=== PATIENT | female | born 2000 | race Caucasian/White ===

== ENCOUNTER 2022-08-31 05:55 | Inpatient (IN) | payer OTHER ==
[~2022-08-31] VITALS: Ht 170.2 cm; Wt 59.1 kg
[2022-08-31 09:33] LABS: HEPATITIS B SURFACE ANTIBODY POSITIVE (POSITIVE)
[2022-08-31 09:44] LABS: HEPATITIS B SURFACE ANTIGEN NEGATIVE (NEGATIVE)
[2022-08-31 09:57] LABS: HIV 1&2 SCREEN NEGATIVE (NEGATIVE)
[2022-08-31 10:05] LABS: HEPATITIS C VIRUS ABY INDEX 0.1 INDEX (<0.8)
[2022-08-31 10:29] LABS: GC DNA AMPLIFICATION NEGATIVE (NEGATIVE)
[2022-08-31] MEDS ORDERED: OLANZapine ORAL DISINTEGRATING TAB 5MG PO PRN (13:35)
[2022-08-31] MEDS ORDERED: NICOTINE 21MG/24HR 1 EA TRANSDERMAL TD PRN (13:35)
[2022-08-31] MEDS ORDERED: MOM 30ML SUSPENSION UDC PO PRN (13:35)
[2022-08-31] MEDS ORDERED: ACETAMINOPHEN TAB 650MG DOSE (2X325MG) PO PRN (13:35)
[2022-08-31] MEDS ORDERED: MAALOX 30 ML SUSP *UDC PO PRN (13:35)
[2022-08-31] MEDS ORDERED: IBUPROFEN 400MG TAB PO PRN (13:35)
[2022-08-31] MEDS ORDERED: traZODone 50 MG TAB PO PRN (13:35)
[2022-08-31] MEDS ORDERED: FLUO20CA22 PO (15:05)
[2022-08-31] MEDS ORDERED: VIST25CA PO (15:05)
[2022-08-31] MEDS ORDERED: SPIR100T3 PO (15:05)
[2022-08-31] MEDS ORDERED: CETI-154 PO (15:05)
[2022-08-31] MEDS ORDERED: HOME MED LIST COMPLETE! XX SCH (15:10)
[2022-08-31 17:10] VITALS: BP 132/74; TEMP 97.1; O2SAT 100
[2022-08-31] MEDS: diphenhydrAMINE 25MG CAP PO PRN (22:13)
[2022-09-01 06:00] VITALS: BP 119/77; TEMP 98.4; O2SAT 100
[2022-09-01] MEDS: FLUoxetine 20MG CAP PO SCH (11:54)
[2022-09-01 16:38] VITALS: BP 117/61; TEMP 97.7; O2SAT 100
[2022-09-01] MEDS: diphenhydrAMINE 25MG CAP PO PRN (21:01)
[2022-09-02 06:54] VITALS: BP 145/72; TEMP 98.2; O2SAT 96
[2022-09-02] MEDS: FLUoxetine 20MG CAP PO SCH (07:59)
[2022-09-02] MEDS ORDERED: NICO21PAT TD (08:09)
[2022-09-02] MEDS ORDERED: FLUO20CA22 PO (08:09)
== END 2022-09-02 10:07 | disposition home or self-care (01) | DRG 882 ==
LOC: M ED 05:55 → M ED INP 13:35 → M PSY 17:12
PROVIDERS: ADMIT Psychiatry & Neurology Psychiatry; ATTEND Student in an Organized Health Care Education/Training Program
DX: F43.11 Post-traumatic stress disorder, acute (principal); F32.A Depression, unspecified; F41.9 Anxiety disorder, unspecified; F90.9 Attention-deficit hyperactivity disorder, unspecified type; S51.812D Laceration without foreign body of left forearm, subsequent encounter; T74.21XD Adult sexual abuse, confirmed, subsequent encounter; Z90.49 Acquired absence of other specified parts of digestive tract; Z87.891 Personal history of nicotine dependence; Z79.899 Other long term (current) drug therapy